=== PATIENT | female | born 1945 | race African-American/Black ===

== ENCOUNTER 2018-08-18 13:40 | Emergency (ER) | payer MEDICARE, MEDICAID ==
[~2018-08-18] VITALS: Ht 165.1 cm; Wt 50.0 kg
[~2018-08-18 13:40] MED LIST: ALPR-340 PO; ALPR-341 PO; ATOR20TA PO; BUDE6HFA INH; CARV6.2548 MT; CLOP75TA16 PO; DOCU250C14 MT; HYDR-4005 PO; ISOS10TA2 MT; LEVA15HF6 IH; NITR0.4T SL; RANI300T4 PO; TEMA30CA MT
[2018-08-18] MEDS ORDERED: ONDANSETRON HCL 4MG/2ML INJ IV STA (14:53)
[2018-08-18] MEDS ORDERED: MORPHINE SULFATE 4 MG/ML CPJ (NOT FOR IM USE) IV STA (14:53)
[2018-08-18] MEDS ORDERED: ACYCLOVIR INJ 750 MG in DEXT 5% WATER 100 ML IV STA (14:53)
[2018-08-18 16:19] LABS: BASOPHILS % 0.5 % (0.0-2.0); EOSINOPHILS % 0.8 % (0.0-5.0); HEMATOCRIT. 33.7 % (36.0-48.0); HEMOGLOBIN. 11.2 g/dL (12.0-16.0); LYMPHOCYTES % 31.9 % (20.0-50.0); MEAN CORPUSCULAR HEMOGLOBIN 31.4 pg (28.0-32.0); MEAN CORPUSCULAR VOLUME 94.2 fL (81.0-99.0); MEAN PLATELET VOLUME 6.9 fl (7.4-10.4); MONOCYTES % 11.1 % (2.0-8.0); NEUTROPHILS % 55.7 % (40.0-76.0); PLATELET 116 x1000/uL (130-400); RED BLOOD CELL COUNT 3.57 mill/uL (4.2-5.4); RED CELL DISTRIBUTION WIDTH 14.4 % (11.6-14.6)
[2018-08-18 16:24] LABS: CHLORIDE 105 mEq/L (98-107)
[2018-08-18 17:49] VITALS: BP 153/71
== END 2018-08-18 18:09 | disposition home or self-care (01) ==
LOC: ER 13:40
DX: B02.9 Zoster without complications (principal); J44.9 Chronic obstructive pulmonary disease, unspecified; I25.2 Old myocardial infarction; Z87.891 Personal history of nicotine dependence; Z79.899 Other long term (current) drug therapy; Z79.82 Long term (current) use of aspirin; Z91.041 Radiographic dye allergy status
CPT/HCPCS: 36415; 71045; 80053; 85025; 96365; 96366; 96375; 99284; J0133; J2270; J2405; J7060

== ENCOUNTER 2018-08-27 20:05 | Emergency (ER) | payer MEDICARE, MEDICAID ==
[~2018-08-27] VITALS: Ht 165.1 cm; Wt 50.0 kg
[2018-08-28] MEDS ORDERED: HYDROCODONE/ACETAMINOPHEN 10/325MG TABLET PO ONE (04:45)
[2018-08-28 05:24] VITALS: BP 151/66
== END 2018-08-28 05:39 | disposition home or self-care (01) ==
LOC: ER 20:05
DX: B02.9 Zoster without complications (principal); R21 Rash and other nonspecific skin eruption; J44.9 Chronic obstructive pulmonary disease, unspecified; I51.9 Heart disease, unspecified; F17.200 Nicotine dependence, unspecified, uncomplicated; Z95.1 Presence of aortocoronary bypass graft; Z98.890 Other specified postprocedural states; Z79.899 Other long term (current) drug therapy; Z88.6 Allergy status to analgesic agent; Z91.041 Radiographic dye allergy status
CPT/HCPCS: 99283

== ENCOUNTER 2019-03-03 22:59 | Inpatient (IN) | payer MEDICARE, MEDICAID ==
[~2019-03-03] VITALS: Ht 162.6 cm; Wt 54.9 kg
[~2019-03-03 22:59] MED LIST changes: -CLOP75TA16 PO; +CLOP75TA4 PO
[2019-03-03] MEDS ORDERED: METHYLPREDNISOLONE SOD SUCC 125 MG/2 ML VIAL IV STA (23:25)
[2019-03-03] MEDS ORDERED: LEVOFLOXACIN 500MG PREMIX 100 ML IV ONE (23:30)
[2019-03-03] MEDS ORDERED: IPRATROPIUM/ALBUTEROL 0.5-3(2.5)MG/3ML NEB HHN ONE (23:30)
[2019-03-03] MEDS ORDERED: MAGNESIUM 2 G PREMIX 50 ML IV ONE (23:30)
[2019-03-04] VITALS (9 sets, daily range): BP systolic 148–187; BP diastolic 63–112
[2019-03-04] LABS: BASOPHILS % 0.4 % (0.0-2.0); EOSINOPHILS % 1.9 % (0.0-5.0); HEMATOCRIT. 30.5 % (36.0-48.0); HEMOGLOBIN. 10.2 g/dL (12.0-16.0); LYMPHOCYTES % 41.9 % (20.0-50.0); MEAN CORPUSCULAR VOLUME 95.5 fL (81.0-99.0); MEAN PLATELET VOLUME 6.7 fl (7.4-10.4); MONOCYTES % 7.1 % (2.0-8.0); NEUTROPHILS % 48.7 % (40.0-76.0); PLATELET 190 x1000/uL (130-400); RED BLOOD CELL COUNT 3.19 mill/uL (4.2-5.4); RED CELL DISTRIBUTION WIDTH 14.9 % (11.6-14.6)
[2019-03-04 00:09] LABS: CHLORIDE 110 mEq/L (98-107)
[2019-03-04 00:10] LABS: PARTIAL THROMBOPLASTIN TIME 27.4 sec (23.4-31.0); PROTHROMBIN TIME 10.4 sec (9.6-11.0)
[2019-03-04 00:16] LABS: ETHANOL BLOOD < 10 mg/dL
[2019-03-04 01:16] LABS: BG BASE EXCESS 4.9 mmol/L (-2.0-2.0); BG CARBOXYHEMOGLOBIN 2.1 % (0.5-1.5); BG DEOXYHEMOGLOBIN 12.3 % (0.0-5.0); BG FRACTION INSPIRED OXYGEN 28; BG HCO3 ACT 32.7 mmol/L (22.0-26.0); BG METHEMOGLOBIN 0.3 % (0.0-1.5); BG OXYGEN SATURATION 87.4 % (92.0-98.5); BG OXYHEMOGLOBIN 85.3 % (94.0-97.0); BG PH 7.306 (7.350-7.450); BG PO2 56.6 mmHg (75.0-100.0); BG SAMPLE SITE RIGHT RADIAL; BG TOTAL HEMOGLOBIN 10.3 g/dL (12.0-18.0); BG VENT MODE NASAL CANNULA
[2019-03-04] MEDS ORDERED: ONDANSETRON HCL 4MG/2ML INJ IV PRN (04:30)
[2019-03-04] MEDS ORDERED: NA PHOS,M-B/NA PHOS,DI-BA ENEMA 118ML PR PRN (04:30)
[2019-03-04] MEDS ORDERED: CLONIDINE 0.1MG TABLET PO PRN (04:30)
[2019-03-04] MEDS ORDERED: DOCUSATE SODIUM 100MG CAPSULE PO PRN (04:30)
[2019-03-04] MEDS ORDERED: IPRATROPIUM/ALBUTEROL 0.5-3(2.5)MG/3ML NEB NEB PRN (04:30)
[2019-03-04] MEDS ORDERED: LEVOFLOXACIN 500MG PREMIX 100 ML IV SCH (04:30)
[2019-03-04] MEDS ORDERED: ACETAMINOPHEN 325MG TABLET PO PRN (04:30)
[2019-03-04 06:24] LABS: CREATINE KINASE 49 IU/L (26-192)
[2019-03-04] MEDS ORDERED: ISOSORBIDE MONONITRATE 60MG TABLET SR 24HR PO SCH (09:00)
[2019-03-04] MEDS ORDERED: CARVEDILOL 6.25 MG TABLET PO SCH (09:00)
[2019-03-04] MEDS: METHYLPREDNISOLONE SOD SUCC 125 MG/2 ML VIAL IV SCH ×3 (09:09→18:38)
[2019-03-04] MEDS: AMLODIPINE 10MG TABLET PO SCH (09:09)
[2019-03-04] MEDS: ENOXAPARIN 40MG/0.4ML SYR SUBCUT SCH (09:10)
[2019-03-04] MEDS: CLOPIDOGREL 75MG TABLET PO SCH (09:14)
[2019-03-04] MEDS: IPRATROPIUM/ALBUTEROL 0.5-3(2.5)MG/3ML NEB NEB SCH ×3 (09:17→21:18)
[2019-03-04] MEDS: HYDROCODONE/ACETAMINOPHEN 5/325MG TABLET PO PRN ×2 (10:12→14:36)
[2019-03-04] MEDS: NICOTINE 21MG PATCH TD SCH (13:00)
[2019-03-04] MEDS: NITROGLYCERIN OINT 1GM/INCH UDPKT TD SCH ×2 (14:37→18:37)
[2019-03-04] MEDS: CLONIDINE 0.1MG TABLET PO SCH ×2 (15:41→22:05)
[2019-03-04] MEDS ORDERED: IPRATROPIUM/ALBUTEROL 0.5-3(2.5)MG/3ML NEB NEB SCH (16:00)
[2019-03-04 16:49] LABS: CREATINE KINASE 52 IU/L (26-192)
[2019-03-04 18:53] LABS: CLARITY URINE CLEAR (CLEAR); COLOR URINE YELLOW (YELLOW); KETONES URINE NEGATIVE (NEGATIVE); LEUKOCYTE ESTERASE URINE NEGATIVE (NEGATIVE); NITRITE URINE NEGATIVE (NEGATIVE); OCCULT BLOOD URINE TRACE (NEGATIVE); PROTEIN URINE 2+ (NEGATIVE); SPECIFIC GRAVITY URINE 1.014 (1.005-1.030); UROBILINOGEN URINE 0.2 E.U./dL (0.2-1.0)
[2019-03-04 19:04] LABS: *BENZODIAZEPINES SCREEN URINE PRESUMTIVE POSITIVE (NEGATIVE); *COCAINE SCREEN URINE NEGATIVE (NEGATIVE)
[2019-03-04 19:05] LABS: *AMPHETAMINES SCREEN URINE NEGATIVE (NEGATIVE); *BARBITURATES SCREEN URINE NEGATIVE (NEGATIVE); CANNABINOID URINE SCREEN NEGATIVE (NEGATIVE); METHADONE URINE SCREEN NEGATIVE (NEGATIVE); OPIATES URINE SCREEN PRESUMTIVE POSITIVE (NEGATIVE); PHENCYCLIDINE URINE SCREEN NEGATIVE (NEGATIVE)
[2019-03-04] MEDS: BUDESONIDE 0.5MG/2ML NEB HHN SCH ×2 (21:17→21:18)
[2019-03-04] MEDS: CARVEDILOL 3.125 MG TABLET PO SCH (22:05)
[2019-03-04] MEDS: LEVOFLOXACIN 250MG PREMIX 50 ML IV SCH (22:06)
[2019-03-04] MEDS: GUAIFENESIN 200MG/10ML SUGAR FREE UDC PO PRN (22:10)
[2019-03-05] VITALS (13 sets, daily range): BP systolic 125–190; BP diastolic 49–84
[2019-03-05] MEDS: IPRATROPIUM/ALBUTEROL 0.5-3(2.5)MG/3ML NEB NEB SCH ×6 (00:44→20:44)
[2019-03-05] MEDS: METHYLPREDNISOLONE SOD SUCC 125 MG/2 ML VIAL IV SCH ×3 (02:01→13:01)
[2019-03-05] MEDS: NITROGLYCERIN OINT 1GM/INCH UDPKT TD SCH ×5 (02:02→23:37)
[2019-03-05 05:44] LABS: BASOPHILS % 0.1 % (0.0-2.0); HEMATOCRIT. 29.9 % (36.0-48.0); HEMOGLOBIN. 10.1 g/dL (12.0-16.0); LYMPHOCYTES % 14.7 % (20.0-50.0); MEAN CORPUSCULAR HEMOGLOBIN 31.6 pg (28.0-32.0); MEAN CORPUSCULAR VOLUME 93.7 fL (81.0-99.0); MEAN PLATELET VOLUME 7.2 fl (7.4-10.4); MONOCYTES % 2.6 % (2.0-8.0); NEUTROPHILS % 82.6 % (40.0-76.0); PLATELET 211 x1000/uL (130-400); RED BLOOD CELL COUNT 3.19 mill/uL (4.2-5.4); RED CELL DISTRIBUTION WIDTH 14.6 % (11.6-14.6)
[2019-03-05 06:08] LABS: CHLORIDE 106 mEq/L (98-107)
[2019-03-05 06:20] LABS: LDL CHOLESTEROL 56 mg/dL (5-100)
[2019-03-05 06:22] LABS: HDL CHOLESTEROL 88 mg/dL (40-59)
[2019-03-05] MEDS: CLOPIDOGREL 75MG TABLET PO SCH (08:48)
[2019-03-05] MEDS: AMLODIPINE 10MG TABLET PO SCH (08:53)
[2019-03-05] MEDS: ENOXAPARIN 40MG/0.4ML SYR SUBCUT SCH (08:53)
[2019-03-05] MEDS: NICOTINE 21MG PATCH TD SCH (08:53)
[2019-03-05] MEDS: CLONIDINE 0.1MG TABLET PO SCH ×2 (08:54→21:17)
[2019-03-05] MEDS: CARVEDILOL 3.125 MG TABLET PO SCH ×2 (08:54→21:18)
[2019-03-05 11:14] LABS: BG BASE EXCESS 3.2 mmol/L (-2.0-2.0); BG BILEVEL POS AIRWAY PRESSURE 15/5; BG CARBOXYHEMOGLOBIN 0.3 % (0.5-1.5); BG DEOXYHEMOGLOBIN 1.4 % (0.0-5.0); BG FRACTION INSPIRED OXYGEN 60; BG HCO3 ACT 27.7 mmol/L (22.0-26.0); BG METHEMOGLOBIN 0.1 % (0.0-1.5); BG OXYGEN SATURATION 98.6 % (92.0-98.5); BG OXYHEMOGLOBIN 98.2 % (94.0-97.0); BG PCO2 41.9 mmHg (35.0-45.0); BG PH 7.438 (7.350-7.450); BG SAMPLE SITE LEFT BRACHIAL; BG TOTAL HEMOGLOBIN 10.2 g/dL (12.0-18.0); BG VENT MODE MASK - BIPAP; BG VENT RATE 14 set
[2019-03-05] MEDS: ALPRAZOLAM 0.5 MG TABLET PO PRN ×2 (15:35→23:33)
[2019-03-05] MEDS: BUDESONIDE 0.5MG/2ML NEB HHN SCH (20:43)
[2019-03-05] MEDS: ZOLPIDEM TARTRATE 5MG TABLET PO PRN (21:16)
[2019-03-05] MEDS: HYDROCODONE/ACETAMINOPHEN 5/325MG TABLET PO PRN (21:16)
[2019-03-05] MEDS: METHYLPREDNISOLONE SOD SUCC 40 MG/ML VIAL IV SCH (21:18)
[2019-03-05] MEDS: LEVOFLOXACIN 250MG PREMIX 50 ML IV SCH (21:19)
[2019-03-06] VITALS (13 sets, daily range): BP systolic 121–166; BP diastolic 46–88
[2019-03-06] MEDS: IPRATROPIUM/ALBUTEROL 0.5-3(2.5)MG/3ML NEB NEB SCH ×6 (00:19→21:22)
[2019-03-06] MEDS: METHYLPREDNISOLONE SOD SUCC 40 MG/ML VIAL IV SCH ×3 (05:13→21:09)
[2019-03-06] MEDS: NITROGLYCERIN OINT 1GM/INCH UDPKT TD SCH ×3 (05:13→18:01)
[2019-03-06 06:34] LABS: HEMATOCRIT. 29.7 % (36.0-48.0); HEMOGLOBIN. 10.5 g/dL (12.0-16.0); LYMPHOCYTES % 10.9 % (20.0-50.0); MEAN CORPUSCULAR HEMOGLOBIN 33.1 pg (28.0-32.0); MEAN CORPUSCULAR VOLUME 93.6 fL (81.0-99.0); MEAN PLATELET VOLUME 7.1 fl (7.4-10.4); MONOCYTES % 3.1 % (2.0-8.0); PLATELET 217 x1000/uL (130-400); RED BLOOD CELL COUNT 3.17 mill/uL (4.2-5.4)
[2019-03-06 07:03] LABS: CHLORIDE 103 mEq/L (98-107)
[2019-03-06] MEDS: BUDESONIDE 0.5MG/2ML NEB HHN SCH (07:59)
[2019-03-06] MEDS: NICOTINE 21MG PATCH TD SCH (08:31)
[2019-03-06] MEDS: CLOPIDOGREL 75MG TABLET PO SCH (08:31)
[2019-03-06] MEDS: ENOXAPARIN 40MG/0.4ML SYR SUBCUT SCH (08:31)
[2019-03-06] MEDS: AMLODIPINE 10MG TABLET PO SCH (08:31)
[2019-03-06] MEDS: ALPRAZOLAM 0.5 MG TABLET PO PRN ×2 (08:31→21:09)
[2019-03-06] MEDS: CARVEDILOL 3.125 MG TABLET PO SCH ×2 (08:36→21:09)
[2019-03-06] MEDS: CLONIDINE 0.1MG TABLET PO SCH ×2 (08:36→21:10)
[2019-03-06] MEDS: GUAIFENESIN 200MG/10ML SUGAR FREE UDC PO PRN (11:20)
[2019-03-06] MEDS: HYDROCODONE/ACETAMINOPHEN 5/325MG TABLET PO PRN (11:56)
[2019-03-06] MEDS: ZOLPIDEM TARTRATE 5MG TABLET PO PRN (21:09)
[2019-03-06] MEDS: LEVOFLOXACIN 250MG PREMIX 50 ML IV SCH (21:11)
[2019-03-07] VITALS (13 sets, daily range): BP systolic 106–166; BP diastolic 46–74
[2019-03-07] MEDS: IPRATROPIUM/ALBUTEROL 0.5-3(2.5)MG/3ML NEB NEB SCH ×6 (00:59→20:28)
[2019-03-07] MEDS: HYDROCODONE/ACETAMINOPHEN 5/325MG TABLET PO PRN ×3 (03:27→20:51)
[2019-03-07] MEDS: ALPRAZOLAM 0.5 MG TABLET PO PRN ×3 (05:28→20:51)
[2019-03-07] MEDS: METHYLPREDNISOLONE SOD SUCC 40 MG/ML VIAL IV SCH ×3 (05:28→20:50)
[2019-03-07] MEDS: NITROGLYCERIN OINT 1GM/INCH UDPKT TD SCH ×5 (05:28→23:48)
[2019-03-07 07:18] LABS: HEMATOCRIT. 31.2 % (36.0-48.0); HEMOGLOBIN. 10.5 g/dL (12.0-16.0); LYMPHOCYTES % 10.3 % (20.0-50.0); MEAN CORPUSCULAR HEMOGLOBIN 31.4 pg (28.0-32.0); MEAN CORPUSCULAR VOLUME 93.9 fL (81.0-99.0); MEAN PLATELET VOLUME 7.3 fl (7.4-10.4); MONOCYTES % 3.7 % (2.0-8.0); PLATELET 204 x1000/uL (130-400); RED BLOOD CELL COUNT 3.32 mill/uL (4.2-5.4); RED CELL DISTRIBUTION WIDTH 15.3 % (11.6-14.6)
[2019-03-07 07:27] LABS: CHLORIDE 104 mEq/L (98-107)
[2019-03-07] MEDS: BUDESONIDE 0.5MG/2ML NEB HHN SCH ×2 (07:40→20:28)
[2019-03-07 08:59] LABS: BG BASE EXCESS 4.3 mmol/L (-2.0-2.0); BG CARBOXYHEMOGLOBIN 0.3 % (0.5-1.5); BG DEOXYHEMOGLOBIN 6.9 % (0.0-5.0); BG FRACTION INSPIRED OXYGEN 21; BG HCO3 ACT 29.6 mmol/L (22.0-26.0); BG METHEMOGLOBIN 0.1 % (0.0-1.5); BG OXYGEN SATURATION 93.1 % (92.0-98.5); BG OXYHEMOGLOBIN 92.7 % (94.0-97.0); BG PCO2 47.7 mmHg (35.0-45.0); BG PH 7.411 (7.350-7.450); BG PO2 69.9 mmHg (75.0-100.0); BG SAMPLE SITE LEFT RADIAL; BG TOTAL HEMOGLOBIN 11.4 g/dL (12.0-18.0); BG VENT MODE NASAL CANNULA
[2019-03-07] MEDS: MAGNESIUM/ALUMINUM HYDROXIDE/SIMETHICONE 30ML UDC PO PRN ×2 (09:16→16:11)
[2019-03-07] MEDS: ENOXAPARIN 40MG/0.4ML SYR SUBCUT SCH (09:17)
[2019-03-07] MEDS: NICOTINE 21MG PATCH TD SCH (09:17)
[2019-03-07] MEDS: CLONIDINE 0.1MG TABLET PO SCH ×2 (09:18→20:49)
[2019-03-07] MEDS: AMLODIPINE 10MG TABLET PO SCH (09:18)
[2019-03-07] MEDS: CARVEDILOL 3.125 MG TABLET PO SCH ×2 (09:18→20:49)
[2019-03-07] MEDS: CLOPIDOGREL 75MG TABLET PO SCH (09:18)
[2019-03-07] MEDS ORDERED: LEVOFLOXACIN 250MG TABLET PO SCH (21:00)
[2019-03-08] VITALS (11 sets, daily range): BP systolic 106–156; BP diastolic 41–66
[2019-03-08] MEDS: IPRATROPIUM/ALBUTEROL 0.5-3(2.5)MG/3ML NEB NEB SCH ×7 (00:13→17:32)
[2019-03-08] MEDS: HYDROCODONE/ACETAMINOPHEN 5/325MG TABLET PO PRN (02:43)
[2019-03-08] MEDS: ZOLPIDEM TARTRATE 5MG TABLET PO PRN (02:43)
[2019-03-08] MEDS: NITROGLYCERIN OINT 1GM/INCH UDPKT TD SCH ×2 (06:27→11:59)
[2019-03-08] MEDS: METHYLPREDNISOLONE SOD SUCC 40 MG/ML VIAL IV SCH ×2 (06:37→13:12)
[2019-03-08] MEDS: NICOTINE 21MG PATCH TD SCH (08:44)
[2019-03-08] MEDS: CLOPIDOGREL 75MG TABLET PO SCH (08:45)
[2019-03-08] MEDS: AMLODIPINE 10MG TABLET PO SCH (08:45)
[2019-03-08] MEDS: CLONIDINE 0.1MG TABLET PO SCH (08:45)
[2019-03-08] MEDS: CARVEDILOL 3.125 MG TABLET PO SCH (08:45)
[2019-03-08] MEDS: ENOXAPARIN 40MG/0.4ML SYR SUBCUT SCH (08:47)
[2019-03-08] MEDS: ALPRAZOLAM 0.5 MG TABLET PO PRN (09:00)
== END 2019-03-08 17:15 | disposition home health service (06) | DRG 189 ==
LOC: ER 22:59 → 5EST 03-04 01:48 → EDBEDREQDT 03-04 01:53 → EDBEDREQTM 03-04 01:53 → EDBEDREQ 03-04 01:53 → EDBEDREQSVC 03-04 01:53 → EDBEDREQ 03-04 01:55 → ENRESERV 03-04 05:17
PROVIDERS: ADMIT Hospitalist; ATTEND Hospitalist
PROC: 5A09357 Assistance with Respiratory Ventilation, Less than 24 Consecutive Hours, Continuous Positive Airway Pressure (ICD-10-PCS; principal; 2019-03-04)
PROC: 5A09457 Assistance with Respiratory Ventilation, 24-96 Consecutive Hours, Continuous Positive Airway Pressure (ICD-10-PCS; 2019-03-04)
PROC: 5A09357 Assistance with Respiratory Ventilation, Less than 24 Consecutive Hours, Continuous Positive Airway Pressure (ICD-10-PCS; 2019-03-08)
DX: J96.21 Acute and chronic respiratory failure with hypoxia (principal); E87.2 Acidosis; J43.9 Emphysema, unspecified; E86.0 Dehydration; I11.9 Hypertensive heart disease without heart failure; E78.5 Hyperlipidemia, unspecified; E11.51 Type 2 diabetes mellitus with diabetic peripheral angiopathy without gangrene; F41.9 Anxiety disorder, unspecified; I71.4 Abdominal aortic aneurysm, without rupture; R13.10 Dysphagia, unspecified; I25.10 Atherosclerotic heart disease of native coronary artery without angina pectoris; F17.210 Nicotine dependence, cigarettes, uncomplicated; I34.0 Nonrheumatic mitral (valve) insufficiency; F32.9 Major depressive disorder, single episode, unspecified; R00.1 Bradycardia, unspecified; M79.7 Fibromyalgia; Z79.899 Other long term (current) drug therapy; Z86.73 Personal history of transient ischemic attack (TIA), and cerebral infarction without residual deficits; Z88.8 Allergy status to other drugs, medicaments and biological substances; I25.2 Old myocardial infarction; Z91.041 Radiographic dye allergy status; Z91.013 Allergy to seafood; Z93.0 Tracheostomy status
CPT/HCPCS: 36415; 36600; 71045; 80048; 80061; 80305; 80320; 81003; 82375; 82550; 82805; 83605; 83880; 84484; 92610; 93005; 93970; 94640; 94660; 96365; 97162; 99291; C1893; J1650; J1956; J2920; J2930; J3475; J7620; J7626; G0480

== ENCOUNTER 2019-08-08 05:02 | Inpatient (IN) | payer MEDICARE, MEDICAID ==
[~2019-08-08] VITALS: Ht 162.6 cm; Wt 51.7 kg
[~2019-08-08 05:02] MED LIST changes: -ALPR-340 PO
[2019-08-08] MEDS ORDERED: SODIUM CHLORIDE 0.9% 1,000 ML IV ONE (05:39)
[2019-08-08] MEDS ORDERED: METHYLPREDNISOLONE SOD SUCC 125 MG/2 ML VIAL IV STA (05:48)
[2019-08-08] MEDS ORDERED: ALBUTEROL (0.083%) 2.5MG/3ML NEB HHN STA (05:48)
[2019-08-08] MEDS ORDERED: IPRATROPIUM BROMIDE (0.02%) 0.5MG/2.5ML NEB HHN STA (05:48)
[2019-08-08 06:03] LABS: BASOPHILS % 0.9 % (0.0-2.0); CHLORIDE 102 mEq/L (98-107); EOSINOPHILS % 0.7 % (0.0-5.0); HEMATOCRIT. 31.4 % (36.0-48.0); HEMOGLOBIN. 10.6 g/dL (12.0-16.0); LYMPHOCYTES % 31.7 % (20.0-50.0); MEAN CORPUSCULAR VOLUME 94.9 fL (81.0-99.0); MEAN PLATELET VOLUME 6.8 fl (7.4-10.4); MONOCYTES % 7.6 % (2.0-8.0); NEUTROPHILS % 59.1 % (40.0-76.0); PLATELET 147 x1000/uL (130-400); RED BLOOD CELL COUNT 3.31 mill/uL (4.2-5.4); RED CELL DISTRIBUTION WIDTH 15.7 % (11.6-14.6)
[2019-08-08 06:19] LABS: INR 1.1; PARTIAL THROMBOPLASTIN TIME 29.8 sec (23.4-31.0); PROTHROMBIN TIME 11.7 sec (9.6-11.0)
[2019-08-08] MEDS ORDERED: MORPHINE SULFATE 4 MG/ML CPJ (NOT FOR IM USE) IV STA (06:32)
[2019-08-08] MEDS ORDERED: ONDANSETRON HCL 4MG/2ML INJ IV STA (06:32)
[2019-08-08] MEDS ORDERED: NITROGLYCERIN 0.4MG TABLET SL SL PRN (08:15)
[2019-08-08] MEDS ORDERED: IPRATROPIUM/ALBUTEROL 0.5-3(2.5)MG/3ML NEB NEB PRN (08:15)
[2019-08-08] MEDS ORDERED: CLONIDINE 0.1MG TABLET PO PRN (08:15)
[2019-08-08] MEDS ORDERED: MAGNESIUM/ALUMINUM HYDROXIDE/SIMETHICONE 30ML UDC PO PRN (08:15)
[2019-08-08] MEDS ORDERED: LEVOFLOXACIN 750MG PREMIX 150 ML IV ONE (08:30)
[2019-08-08] MEDS ORDERED: ASPIRIN 325MG EC TABLET PO SCH (09:00)
[2019-08-08] MEDS: FAMOTIDINE 20MG TABLET PO SCH (12:46)
[2019-08-08] MEDS: SPIRONOLACTONE 25MG TABLET PO SCH ×2 (12:47→21:56)
[2019-08-08] MEDS: FUROSEMIDE 20MG/2ML VIAL IVP SCH ×2 (12:48→21:57)
[2019-08-08 13:30] VITALS: BP 153/67
[2019-08-08] MEDS: ENOXAPARIN 30MG/0.3ML SYR SUBCUT SCH (15:56)
[2019-08-08] MEDS: GUAIFENESIN/DM 600MG/30MG ER TAB 12HR PO SCH ×2 (15:56→21:56)
[2019-08-08 16:00] VITALS: BP 157/77
[2019-08-08] MEDS: METOCLOPRAMIDE 10MG/10 ML UDC PO SCH (16:54)
[2019-08-08] MEDS ORDERED: AZITHROMYCIN 500 MG in DEXT 5% WATER 250 ML IV SCH (17:00)
[2019-08-08] MEDS: IPRATROPIUM/ALBUTEROL 0.5-3(2.5)MG/3ML NEB HHN SCH ×2 (17:20→22:05)
[2019-08-08] MEDS ORDERED: INFLUENZA VIRUS VACCINE(AFLURIA) 0.5ML SYR IM ONE (17:30)
[2019-08-08] MEDS: DOCUSATE SODIUM 100MG CAPSULE PO PRN (17:39)
[2019-08-08] MEDS: CARVEDILOL 3.125 MG TABLET PO SCH (17:39)
[2019-08-08] MEDS: ACETAMINOPHEN 325MG TABLET PO PRN (17:39)
[2019-08-08] MEDS ORDERED: CEFTRIAXONE 1 G PREMIX 50 ML IV SCH (18:00)
[2019-08-08 18:38] LABS: *AMPHETAMINES SCREEN URINE NEGATIVE (NEGATIVE); *BARBITURATES SCREEN URINE NEGATIVE (NEGATIVE); *BENZODIAZEPINES SCREEN URINE PRESUMTIVE POSITIVE (NEGATIVE); *COCAINE SCREEN URINE NEGATIVE (NEGATIVE)
[2019-08-08 18:39] LABS: CANNABINOID URINE SCREEN NEGATIVE (NEGATIVE); METHADONE URINE SCREEN NEGATIVE (NEGATIVE); OPIATES URINE SCREEN PRESUMTIVE POSITIVE (NEGATIVE); PHENCYCLIDINE URINE SCREEN NEGATIVE (NEGATIVE)
[2019-08-08 19:51] LABS: CREATINE KINASE MB FRACTION 2.5 ng/mL (0.5-3.6)
[2019-08-08 20:00] VITALS: BP 110/66
[2019-08-08] MEDS: NICOTINE 14MG PATCH TD SCH (21:56)
[2019-08-08] MEDS: ZOLPIDEM TARTRATE 5MG TABLET PO PRN (22:04)
[2019-08-08] MEDS: TRAMADOL 50MG TABLET PO PRN (22:04)
[2019-08-09] VITALS: BP 118/60
[2019-08-09] MEDS: IPRATROPIUM/ALBUTEROL 0.5-3(2.5)MG/3ML NEB HHN SCH ×5 (00:57→19:55)
[2019-08-09 01:31] LABS: CREATINE KINASE MB FRACTION 2.7 ng/mL (0.5-3.6)
[2019-08-09] MEDS: TRAMADOL 50MG TABLET PO PRN ×3 (05:51→20:37)
[2019-08-09] MEDS: METOCLOPRAMIDE 10MG/10 ML UDC PO SCH ×3 (05:51→17:51)
[2019-08-09] MEDS: CARVEDILOL 3.125 MG TABLET PO SCH ×2 (05:51→17:51)
[2019-08-09] MEDS: ONDANSETRON HCL 4MG/2ML INJ IV PRN ×2 (05:52→10:04)
[2019-08-09 08:12] VITALS: BP 102/46
[2019-08-09] MEDS: ACETAMINOPHEN 325MG TABLET PO PRN ×2 (09:13→17:51)
[2019-08-09] MEDS: NICOTINE 14MG PATCH TD SCH (09:13)
[2019-08-09] MEDS: FUROSEMIDE 20MG/2ML VIAL IVP SCH ×2 (09:13→20:33)
[2019-08-09] MEDS: CLOPIDOGREL 75MG TABLET PO SCH (09:14)
[2019-08-09] MEDS: FAMOTIDINE 20MG TABLET PO SCH (09:14)
[2019-08-09] MEDS: DOCUSATE SODIUM 100MG CAPSULE PO PRN (09:14)
[2019-08-09] MEDS: GUAIFENESIN/DM 600MG/30MG ER TAB 12HR PO SCH ×2 (09:14→20:34)
[2019-08-09] MEDS: SPIRONOLACTONE 25MG TABLET PO SCH ×2 (09:16→20:34)
[2019-08-09] MEDS: ENOXAPARIN 30MG/0.3ML SYR SUBCUT SCH (10:04)
[2019-08-09] MEDS ORDERED: LACTULOSE 20G/30ML UDC PO NR (10:30)
[2019-08-09 12:00] VITALS: BP 124/50
[2019-08-09] MEDS ORDERED: MINERAL OIL ENEMA 133ML PR NR (12:00)
[2019-08-09] MEDS: CEFTRIAXONE 1 G PREMIX 50 ML IV SCH (12:32)
[2019-08-09] MEDS: AZITHROMYCIN 500 MG in DEXT 5% WATER 250 ML IV SCH (15:27)
[2019-08-09 16:00] VITALS: BP 121/78
[2019-08-09 20:00] VITALS: BP 100/52
[2019-08-10] VITALS: BP 101/50
[2019-08-10] MEDS: IPRATROPIUM/ALBUTEROL 0.5-3(2.5)MG/3ML NEB HHN SCH ×6 (01:06→21:26)
[2019-08-10] MEDS: ZOLPIDEM TARTRATE 5MG TABLET PO PRN ×2 (02:01→21:17)
[2019-08-10 04:00] VITALS: BP 107/58
[2019-08-10] MEDS: CARVEDILOL 3.125 MG TABLET PO SCH ×2 (06:00→18:00)
[2019-08-10] MEDS: METOCLOPRAMIDE 10MG/10 ML UDC PO SCH ×3 (07:03→17:20)
[2019-08-10 08:12] VITALS: BP 135/66
[2019-08-10] MEDS: ACETAMINOPHEN 325MG TABLET PO PRN (09:14)
[2019-08-10] MEDS: FAMOTIDINE 20MG TABLET PO SCH (09:17)
[2019-08-10] MEDS: GUAIFENESIN/DM 600MG/30MG ER TAB 12HR PO SCH ×2 (09:17→21:13)
[2019-08-10] MEDS: FUROSEMIDE 20MG/2ML VIAL IVP SCH ×2 (09:18→21:13)
[2019-08-10] MEDS: CLOPIDOGREL 75MG TABLET PO SCH (09:18)
[2019-08-10] MEDS: ONDANSETRON HCL 4MG/2ML INJ IV PRN (09:18)
[2019-08-10] MEDS: NICOTINE 14MG PATCH TD SCH (09:18)
[2019-08-10] MEDS: ENOXAPARIN 30MG/0.3ML SYR SUBCUT SCH (09:19)
[2019-08-10] MEDS: SPIRONOLACTONE 25MG TABLET PO SCH ×2 (09:41→21:13)
[2019-08-10 12:14] VITALS: BP 140/65
[2019-08-10] MEDS: CEFTRIAXONE 1 G PREMIX 50 ML IV SCH (13:16)
[2019-08-10] MEDS: TRAMADOL 50MG TABLET PO PRN ×2 (13:54→21:17)
[2019-08-10] MEDS: AZITHROMYCIN 500 MG in DEXT 5% WATER 250 ML IV SCH (15:35)
[2019-08-10 16:05] VITALS: BP 100/47
[2019-08-10 20:00] VITALS: BP 131/64
[2019-08-10] MEDS: DOCUSATE SODIUM 100MG CAPSULE PO PRN (21:08)
[2019-08-11] VITALS: BP 121/55
[2019-08-11] MEDS: IPRATROPIUM/ALBUTEROL 0.5-3(2.5)MG/3ML NEB HHN SCH ×6 (00:24→20:00)
[2019-08-11 04:00] VITALS: BP 130/68
[2019-08-11] MEDS: CARVEDILOL 3.125 MG TABLET PO SCH ×2 (06:31→18:59)
[2019-08-11] MEDS: TRAMADOL 50MG TABLET PO PRN ×3 (06:31→21:31)
[2019-08-11] MEDS: METOCLOPRAMIDE 10MG/10 ML UDC PO SCH ×3 (06:31→16:54)
[2019-08-11] MEDS: FUROSEMIDE 20MG/2ML VIAL IVP SCH ×2 (09:18→21:25)
[2019-08-11] MEDS: NICOTINE 14MG PATCH TD SCH (09:19)
[2019-08-11] MEDS: CLOPIDOGREL 75MG TABLET PO SCH (09:20)
[2019-08-11] MEDS: FAMOTIDINE 20MG TABLET PO SCH (09:20)
[2019-08-11] MEDS: SPIRONOLACTONE 25MG TABLET PO SCH ×2 (09:20→21:27)
[2019-08-11] MEDS: GUAIFENESIN/DM 600MG/30MG ER TAB 12HR PO SCH ×2 (09:20→21:27)
[2019-08-11] MEDS: ENOXAPARIN 30MG/0.3ML SYR SUBCUT SCH (09:30)
[2019-08-11 12:00] VITALS: BP 112/42
[2019-08-11 12:02] LABS: BASOPHILS % 0.3 % (0.0-2.0); HEMATOCRIT. 31.1 % (36.0-48.0); HEMOGLOBIN. 10.6 g/dL (12.0-16.0); LYMPHOCYTES % 21.1 % (20.0-50.0); MEAN CORPUSCULAR HEMOGLOBIN 32.4 pg (28.0-32.0); MEAN CORPUSCULAR VOLUME 95.1 fL (81.0-99.0); MONOCYTES % 11.1 % (2.0-8.0); NEUTROPHILS % 66.5 % (40.0-76.0); PLATELET 164 x1000/uL (130-400); RED BLOOD CELL COUNT 3.26 mill/uL (4.2-5.4); RED CELL DISTRIBUTION WIDTH 16.5 % (11.6-14.6)
[2019-08-11 12:11] LABS: CHLORIDE 99 mEq/L (98-107)
[2019-08-11 12:17] LABS: PHOSPHORUS 4.2 mg/dL (2.5-4.9)
[2019-08-11] MEDS: CEFTRIAXONE 1 G PREMIX 50 ML IV SCH (13:24)
[2019-08-11] MEDS: AZITHROMYCIN 500 MG in DEXT 5% WATER 250 ML IV SCH (14:47)
[2019-08-11] MEDS: GUAIFENESIN 200MG/10ML SUGAR FREE UDC PO PRN (14:48)
[2019-08-11 16:13] VITALS: BP 113/64
[2019-08-11 20:00] VITALS: BP 120/53
[2019-08-11] MEDS: ACETAMINOPHEN 325MG TABLET PO PRN (21:27)
[2019-08-11] MEDS: ZOLPIDEM TARTRATE 5MG TABLET PO PRN (22:10)
[2019-08-12] VITALS: BP 121/55
[2019-08-12] MEDS: IPRATROPIUM/ALBUTEROL 0.5-3(2.5)MG/3ML NEB HHN SCH ×3 (00:19→08:16)
[2019-08-12 04:00] VITALS: BP 111/46
[2019-08-12] MEDS: CARVEDILOL 3.125 MG TABLET PO SCH (06:00)
[2019-08-12] MEDS: TRAMADOL 50MG TABLET PO PRN (06:48)
[2019-08-12] MEDS: METOCLOPRAMIDE 10MG/10 ML UDC PO SCH (06:48)
[2019-08-12 08:10] VITALS: BP 92/70
[2019-08-12] MEDS: CLOPIDOGREL 75MG TABLET PO SCH (08:38)
[2019-08-12] MEDS: FAMOTIDINE 20MG TABLET PO SCH (08:38)
[2019-08-12] MEDS: FUROSEMIDE 20MG/2ML VIAL IVP SCH (08:39)
[2019-08-12] MEDS: NICOTINE 14MG PATCH TD SCH (08:44)
[2019-08-12] MEDS: ENOXAPARIN 30MG/0.3ML SYR SUBCUT SCH (08:48)
[2019-08-12] MEDS: SPIRONOLACTONE 25MG TABLET PO SCH (09:00)
[2019-08-12] MEDS ORDERED: AZITHROMYCIN 500 MG TABLET PO SCH (09:00)
[2019-08-12] MEDS: GUAIFENESIN 200MG/10ML SUGAR FREE UDC PO PRN (09:52)
[2019-08-12] MEDS: GUAIFENESIN/DM 600MG/30MG ER TAB 12HR PO SCH (09:54)
[2019-08-12 10:10] VITALS: BP 92/70
[2019-08-12 10:25] VITALS: BP 92/70
== END 2019-08-12 11:55 | disposition home health service (06) | DRG 194 ==
LOC: ER 05:02 → 6WST 06:54 → SUPCPDRO 08:02 → ENRESERV 09:31 → CANRESERV 09:31 → ENRESERV 12:25
PROVIDERS: ADMIT Internal Medicine; ATTEND Internal Medicine
DX: J18.9 Pneumonia, unspecified organism (principal); E87.1 Hypo-osmolality and hyponatremia; I24.9 Acute ischemic heart disease, unspecified; M54.9 Dorsalgia, unspecified; M54.2 Cervicalgia; R79.89 Other specified abnormal findings of blood chemistry; D63.8 Anemia in other chronic diseases classified elsewhere; E78.00 Pure hypercholesterolemia, unspecified; E86.0 Dehydration; I10 Essential (primary) hypertension; I25.10 Atherosclerotic heart disease of native coronary artery without angina pectoris; Z93.0 Tracheostomy status; Z87.891 Personal history of nicotine dependence; Z88.6 Allergy status to analgesic agent; I25.2 Old myocardial infarction; Z86.73 Personal history of transient ischemic attack (TIA), and cerebral infarction without residual deficits; Z91.013 Allergy to seafood; Z91.041 Radiographic dye allergy status; Z91.81 History of falling
CPT/HCPCS: 36415; 71045; 74176; 80053; 80061; 80305; 82550; 82553; 82607; 82746; 83036; 83540; 83550; 83735; 83880; 84100; 84145; 84484; 85025; 90686; 93005; 93306; 93970; 94640; 94644; 97116; 97162; 97166; 99285; J0456; J0696; J1650; J1940; J1956; J2270; J2405; J2930; J7030; J7060; J8597